=== PATIENT | male | born 1950 | race Caucasian/White ===

== ENCOUNTER → 2020-04-16 | Outpatient (CLI) | payer OTHER ==
[~2020-04-16] MED LIST: ASA81BEC PO; FLOMAX0.4 MG PO; LEXAPRO 10 MG T10 MG PO; LISINOPRIL2.5 MG PO; PROSCAR 5MG TABL5 MG PO; SUPER THERAVIT1 EACH PO
== END ==
LOC: SJCVC 15:16
PROVIDERS: ATTEND Internal Medicine Cardiovascular Disease
DX: R94.31 Abnormal electrocardiogram [ECG] [EKG] (principal); I10 Essential (primary) hypertension; E78.00 Pure hypercholesterolemia, unspecified; R53.83 Other fatigue; Z79.899 Other long term (current) drug therapy

== ENCOUNTER → 2020-04-23 | Outpatient (CLI) | payer OTHER | LOC: SJCVCIMAG 08:41 | PROVIDERS: ATTEND Internal Medicine Cardiovascular Disease | DX: I07.1 Rheumatic tricuspid insufficiency (principal); I10 Essential (primary) hypertension ==

== ENCOUNTER → 2020-04-24 | Outpatient (CLI) | payer OTHER | LOC: SJCVCIMAG 07:45 | PROVIDERS: ATTEND Internal Medicine Cardiovascular Disease | DX: I45.10 Unspecified right bundle-branch block (principal); I49.3 Ventricular premature depolarization; E78.00 Pure hypercholesterolemia, unspecified; I10 Essential (primary) hypertension; E78.5 Hyperlipidemia, unspecified; Z79.899 Other long term (current) drug therapy ==

== ENCOUNTER → 2020-04-30 | Outpatient (CLI) | payer OTHER ==
[~2020-04-30] VITALS: Ht 190.5 cm; Wt 131.5 kg
[2020-04-30 07:17] VITALS: BP 136/77
[2020-04-30 07:54] LABS: HEMOGLOBIN 15.4 gm/dL (14.0-18.0); MCH 31.4 pg (26.0-34.0); MCHC 34.3 g/dL (28.0-37.0); MCV 91.6 fL (80.0-100.0); RBC 4.91 mil/uL (4.50-6.00); RDW 13.6 % (10.5-14.5); WBC 6.4 thou/uL (4.0-11.0)
[2020-04-30 08:21] LABS: CALCIUM 8.7 mg/dL (8.5-10.1); POTASSIUM 3.9 mmol/L (3.5-5.1)
--- NOTE | 2020-04-30 11:19 | NUR ---
PT AMBULATES TO BR AND BACK. PT WEARS A BRACE TO HIS RIGHT FOOT AND IS A LITTLE UNSTEADY WHILE AMBULATING. DOES NOT USE ANY DEVICES TO AMBULATE. NO BLEEDING OR SWELLING TO GROIN SITE POST AMBULATING. INSTRUCTED PT I WILL HAVE HIM AMBULATE EVERY 15 MINUTES OR SO.
--- NOTE | 2020-04-30 12:55 | CATHLAB ---
[facility] [place] [address] [place] [address] INVASIVE PROCEDURE REPORT Name: COOPER ROBLES Room #: REG [facility].#: [id number] Admission: 04/30/20 Attend Phys: Sher Holguin MD Discharge: Date of : 46 Report #: [id number] THIS REPORT FOR: cc: MANI ADAMES Physician not on staff Sher Holguin MD ~ APPROVED REPORT Study performed: 04/30/2020 07:35:19 Patient Details Patient Status: Out-Patient Room #: The patient is a 70 year-old male Event Personnel Sher Holguin Gas Appliance Adjuster, Genoveva Bridges RN, Collins Cortes RN RN, Christiane Mahmood RTR Scrub, Luna Ham RTR Monitor Procedures Performed Art Access - R femoral artery* Left Heart Cath w/or w/o Coronaries [id number] [facility] 11085 Initial Mod Sed Same Phys/QHP Gr [id number] Mod Sed Same Phys/QHP Ea [id number] Hemostasis with Manual pressure Indication Dyspnea, Positive stress test Risk Factors HypercholesterolemiaPhysical Activity, Hypertension Procedure Narrative The Right Groin^ was infiltrated with 1% Lidocaine subcutaneous anesthesia. A PINNACLE 4FR Sheath #[id number] sheath was inserted into the RFA^. Coronary angiography was performed using coronary diagnostic catheters. The right coronary system was accessed and visualized with a 3DRC catheter. The left coronary system was accessed and visualized with a JL4 catheter. The left ventricle was accessed and visualized with a 3DRC catheter. Hemostasis was obtained with manual pressure following sheath removal without any complications. The patient tolerated the procedure well and there were no complications associated with the procedure. There was no hematoma. [facility] [address] [place] [address] INVASIVE PROCEDURE REPORT Name: COOPER ROBLES Room #: REG [facility]#: [id number] Admission: 04/30/20 Attend Phys: Sher Holguin MD Discharge: Date of : 46 Report #: [id number] Intraoperative Conscious Sedation Sedation start time: 8:33 Case end Time: 9:01 Fentanyl 50 mcg Versed 1 mg Fluoro Time: 4.20 minutes Dose: DAP 88327.20 cGycm2 1572 mGy Contrast Type and Amount: Visipaque 55 ml Coronary Angiography The patient's coronary anatomy is co- dominant. Diagnostic Cath Left Main This is a large-caliber vessel, patent with no flow-limiting lesions. LAD The LAD is a moderate-sized caliber vessel, traverses the anterior wall and wraps around the apex. There is minimal plaquing in the proximal segment. Diagonal 1 There is a small to moderate-sized caliber vessel, patent with no flow-limiting lesions. Diagonal 2 There is a small to moderate-sized caliber vessel, patent with no flow-limiting lesions. Circumflex The left circumflex artery is a codominant vessel, patent with no flow-limiting lesions. OM1 This is a moderate-sized caliber vessel, supplies several branches as it travels down the inferolateral wall. There is minimal plaquing in the proximal segment. Right Coronary The RCA is a patent vessel, with no flow-limiting lesions. R PDA There is a small to moderate-sized caliber vessel, patent with no flow-limiting lesions. Left Ventriculography Left Ventriculography was not performed. Ejection Fraction was >55% based off patient's Nuclear Cardiac Stress Test. An LVEDP was measured and there is no gradient across the outflow tract. Hemodynamics The aortic pressure is 157/85 mmHg with a mean of 123 mmHg. The left ventricular pressure is 148/18 mmHg with a mean of mmHg. The left ventricular end diastolic pressure is 33 mmHg. Conclusion 1. There is minimal plaquing in the proximal LAD and the first obtuse marginal artery. [facility] [address] [place] [address] INVASIVE PROCEDURE REPORT Name: COOPER ROBLES Room #: REG [facility]#: [id number] Admission: 04/30/20 Attend Phys: Sher Holguin MD Discharge: Date of : 46 Report #: [id number] 2. Codominant system. 3. Normal LV systolic function. 4. Recommend guideline directed medical therapy. <ELECTRONICALLY SIGNED> By: Sher Holguin MD 04/30/20 1255 1255 Sehr Holguin MD /TAYLOR
== END ==
LOC: CATH 06:35
PROVIDERS: ATTEND Internal Medicine Cardiovascular Disease
DX: R94.39 Abnormal result of other cardiovascular function study (principal); R06.00 Dyspnea, unspecified; I25.10 Atherosclerotic heart disease of native coronary artery without angina pectoris; I10 Essential (primary) hypertension; E78.00 Pure hypercholesterolemia, unspecified; N40.0 Benign prostatic hyperplasia without lower urinary tract symptoms; G47.30 Sleep apnea, unspecified; Z98.890 Other specified postprocedural states; Z79.899 Other long term (current) drug therapy; Z79.82 Long term (current) use of aspirin

== ENCOUNTER → 2020-05-08 | Outpatient (CLI) | payer OTHER | LOC: RAD 15:58 | PROVIDERS: ATTEND Internal Medicine | DX: J98.4 Other disorders of lung (principal); J43.9 Emphysema, unspecified ==

== ENCOUNTER → 2020-05-30 | Outpatient (CLI) | payer OTHER | LOC: CAT 09:53 | PROVIDERS: ATTEND Internal Medicine | DX: J43.9 Emphysema, unspecified (principal); E04.1 Nontoxic single thyroid nodule; N28.89 Other specified disorders of kidney and ureter ==